=== PATIENT | male | born 1980 | race Caucasian/White ===

== ENCOUNTER 2017-10-07 07:47 | Emergency (ER) | payer OTHER ==
[~2017-10-07] VITALS: Ht 185.4 cm; Wt 79.0 kg
[2017-10-07] MEDS ORDERED: ONDANSETRON ODT 4 MG ONE (08:25)
[2017-10-07] MEDS ORDERED: FAMOTIDINE 20 MG/2 ML ONE (08:25)
[2017-10-07] MEDS ORDERED: SODIUM CHLORIDE 0.9% 1,000ML IVBOLUS ONE (08:30)
[2017-10-07] MEDS ORDERED: SODIUM CHLORIDE FLUSH 10ML SYR IVF ONE (08:30)
[2017-10-07] MEDS ORDERED: FAMOTIDINE 20 MG/2 ML IVP ONE (08:30)
[2017-10-07] MEDS ORDERED: ONDANSETRON ODT 4 MG PO ONE (08:30)
[2017-10-07] MEDS ORDERED: ONDANSETRON 2MG/ML, 2ML IVPush ONE (08:30)
[2017-10-07 08:33] LABS: BASOPHILS # (AUTO) 0.02 x10^3/uL (0-0.1); BASOPHILS % (AUTO) 0 % (0-1); EOSINOPHILS # (AUTO) 0.18 x10^3/uL (0-0.4); EOSINOPHILS % (AUTO) 3 % (1-7); LYMPHOCYTES # (AUTO) 1.49 x10^3/uL (1-3.4); LYMPHOCYTES % (AUTO) 29 % (22-44); MD NO; MEAN CORPUSCULAR HEMOGLOBIN 30.7 pg (27.5-34.5); MEAN CORPUSCULAR HGB CONC 34.1 g/dL (33.2-36.2); MEAN CORPUSCULAR VOLUME 90.1 fL (81-97); MEAN PLATELET VOLUME 7.5 fL (7.4-10.4); MONOCYTES # (AUTO) 0.36 x10^3/uL (0.2-0.8); MONOCYTES % (AUTO) 7 % (2-9); NEUTROPHILS % (AUTO) 61 % (42-75); PLATELET COUNT 232 x10^3/uL (130-400); RED BLOOD COUNT 5.36 x10^6/uL (4.38-5.82); RED CELL DISTRIBUTION WIDTH 13.3 % (9.4-14.8)
[2017-10-07 08:41] LABS: ALANINE AMINOTRANSFERASE 186 U/L (12-78); ALBUMIN 3.6 g/dL (3.4-5.0); ANION GAP 6 mmol/L (5-15); CALCIUM 8.3 mg/dL (8.5-10.1); CHLORIDE 106 mmol/L (98-107); CREATININE 0.79 mg/dL (0.7-1.3)
[2017-10-07 08:43] LABS: ALKALINE PHOSPHATASE 61 U/L (45-117); BILIRUBIN,TOTAL 0.7 mg/dL (0.2-1.0); TOTAL PROTEIN 6.9 g/dL (6.4-8.2)
[2017-10-07 09:02] LABS: MICROSCOPIC NOT IND
[2017-10-07 09:08] LABS: CULTURE INDICATED? NO
[2017-10-07 10:09] VITALS: BP 128/86
[2017-10-07] MEDS ORDERED: OMNIPAQUE 350 MG/ML, 100ML BOTTLE ONE (10:12)
== END 2017-10-07 11:05 | disposition home or self-care (01) ==
LOC: ED 09:28
DX: K29.00 Acute gastritis without bleeding (principal)
CPT/HCPCS: 36415; 74177; 76700; 80053; 81003; 83690; 85025; 96361; 96374; 99285; J7030; Q0162; Q9967; S0028

== ENCOUNTER 2018-08-29 17:07 | Emergency (ER) | payer SELFPAY ==
[~2018-08-29] VITALS: Ht 185.4 cm; Wt 79.5 kg
[2018-08-29 17:13] VITALS: BP 147/101
== END 2018-08-29 17:47 | disposition home or self-care (01) ==
LOC: ED 17:40
DX: L72.0 Epidermal cyst (principal); R21 Rash and other nonspecific skin eruption
CPT/HCPCS: 99281

== ENCOUNTER 2020-03-24 14:36 | Emergency (ER) | payer BC ==
[~2020-03-24] VITALS: Ht 185.4 cm; Wt 81.0 kg
[2020-03-24 14:38] VITALS: BP 129/83
--- NOTE | 2020-03-24 15:35 | NUR ---
PT C/O COUGH, CHEST PAIN, DRY NASAL PASSAGE, COUGH, AND SORE THROAT X DAYS. PT STATES SOB WHEN TRYING TO FALL ASLEEP.
--- NOTE | 2020-03-24 15:42 | NUR ---
PT REC'VD DISCHARGE AND EDUACTION INSTRUCTIONS. PT STATES NO QUESTIONS. PT AMBULATED TO EXIT, STEADY GAIT.
== END 2020-03-24 15:44 | disposition home or self-care (01) ==
LOC: ED 15:15
DX: B34.9 Viral infection, unspecified (principal); Z20.828 Contact with and (suspected) exposure to other viral communicable diseases; F17.200 Nicotine dependence, unspecified, uncomplicated
CPT/HCPCS: 36415; 87635; 99283

== ENCOUNTER 2020-09-02 12:48 | Emergency (ER) | payer BC ==
[~2020-09-02] VITALS: Ht 185.4 cm; Wt 80.6 kg
[2020-09-02 13:25] VITALS: BP 119/84
--- NOTE | 2020-09-02 13:38 | NUR ---
PA at bedside for exam.
[2020-09-02] MEDS ORDERED: CEFTRIAXONE 1,000 MG ONE (13:41)
[2020-09-02] MEDS ORDERED: CEFTRIAXONE 1,000 MG IM ONE (14:00)
== END 2020-09-02 14:33 | disposition home or self-care (01) ==
LOC: ED 13:40
DX: R36.9 Urethral discharge, unspecified (principal); Z20.2 Contact with and (suspected) exposure to infections with a predominantly sexual mode of transmission
CPT/HCPCS: 87491; 87591; 96372; 99283; J0696